=== PATIENT | female | born 1965 | race Caucasian/White ===

== ENCOUNTER 2017-01-02 07:13 | Emergency (ER) | payer BC ==
[2017-01-02 07:25] VITALS: BP 138/81
[2017-01-02] MEDS ORDERED: Ciprofloxacin TAB* 500 MG PO ONE (07:44)
--- NOTE | 2017-01-02 07:48 | UC ---
Complaint Female HPI - HPI Summary HPI Summary: UTI symptoms. Gets a few a year since turning 49. NO fever or vomiting. 3 prior cultures grew E. coli sensitive to Cipro. - History Of Current Complaint Chief Complaint: UCGU Stated Complaint: URINARY COMPLAINT Time Seen by Provider: 01/02/17 07:16 Hx Obtained From: Patient Hx Last Menstrual Period: n/a Onset/Duration: Gradual Onset, Lasting Days - 2 Timing: Constant Severity Initially: Mild Severity Currently: Mild Character: Dull, Cramping Aggravating Factor(s): Urination Associated Signs And Symptoms: Positive: Negative. Negative: Fever, Back Pain, Vaginal Bleeding/Discharge, Vaginal Discharge, Nausea, Vomiting(# Of Episodes =) Related Hx: Similar Episode/Dx as: - UTI - Risk Factors Ectopic Risk Factor: Negative Ovarian Torsion Risk Factor: Negative - Allergies/Home Medications Allergies/Adverse Reactions: Allergies Allergy/AdvReac Type Severity Reaction Status Date / Time Unknown med Allergy Rash Uncoded 01/02/17 07:26 Home Medications: Home Medications Phenazopyridine TAB* [Pyridium TAB*] 95 mg PO ONCE 01/02/17 [History Confirmed 01/02/17] PMH/Surg Hx/FS Hx/Imm Hx Cardiovascular History Of: Reports: Hypertension Denies: Cardiac Disorders - Surgical History Surgical History: Yes Surgery Procedure, Year, and Place: uterine ablation, back surgeries, bunions removed bilateral feet - Family History Known Family History: Positive: Hypertension - Social History Occupation: Employed Full-time Lives: With Family Alcohol Use: Occasionally Alcohol Amount: weekends Substance Use Type: None Smoking Status (MU): Never Smoked Tobacco Review of Systems Constitutional: Negative Skin: Negative Eyes: Negative ENT: Negative Respiratory: Negative Cardiovascular: Negative Gastrointestinal: Negative Genitourinary: Dysuria, Frequency, Urgency Motor: Negative Neurovascular: Negative Musculoskeletal: Negative Neurological: Negative Psychological: Negative All Other Systems Reviewed And Are Negative: Yes Physical Exam Triage Information Reviewed: Yes Appearance: Well-Appearing, No Pain Distress, Well-Nourished Vital Signs: Initial Vital Signs Temp 97.5 F 01/02/17 07:19 Pulse 70 01/02/17 07:19 Resp 20 01/02/17 07:19 BP 138/81 01/02/17 07:19 Pulse Ox 100 01/02/17 07:19 Vital Signs Reviewed: Yes Eye Exam: Normal Respiratory Exam: Normal Cardiovascular Exam: Normal Abdomen Description: Positive: Other: - suprapubic tenderness Musculoskeletal Exam: Normal Neurological Exam: Normal Psychological Exam: Normal Skin Exam: Normal Diagnostics - Laboratory Diagnostic Studies Completed/Ordered: U/A dip pos leuks, blood, nitrite Complaint Female Dx - Differential Dx/Diagnosis Differential Diagnosis/HQI/PQRI: Renal Colic, Urinary Tract Infection Provider Diagnoses: UTI Discharge - Discharge Plan Condition: Stable Disposition: HOME Prescriptions: Ciprofloxacin HCl [Cipro] 500 mg PO BID #20 tab Patient Education Materials: Urinary Tract Infection in Women (ED) Referrals: Casimiro Stahl DO [Primary Care Provider] -
== END 2017-01-02 07:55 | disposition home or self-care (01) ==
LOC: UCCORT 07:13
DX: N39.0 Urinary tract infection, site not specified (principal); Z87.440 Personal history of urinary (tract) infections
CPT/HCPCS: 87086; 99212; A9270-GY; G0463

== ENCOUNTER 2019-08-29 08:03 | Emergency (ER) | payer BC ==
[2019-08-29 08:31] VITALS: BP 115/81
--- NOTE | 2019-08-29 09:03 | UC ---
Complaint Female HPI - HPI Summary HPI Summary: 53-year-old woman comes in with a chief complaint of increased urinary frequency and foul-smelling urine which reminds her of UTI symptoms. Started several days ago. It's been continuing. Patient has chronic low back pain so she cannot tell if she has any flank pain. No fevers or chills feels well otherwise. Denies any abdominal pain. - History Of Current Complaint Chief Complaint: UCGU Stated Complaint: URINARY COMPLAINT Time Seen by Provider: 08/29/19 08:54 Hx Last Menstrual Period: UTERINE ABLATION 10 YEARS AGO. HAS NOT HAD A PERIOD SINCE Pain Intensity: 0 - Allergies/Home Medications Allergies/Adverse Reactions: Allergies Allergy/AdvReac Type Severity Reaction Status Date / Time Sulfa (Sulfonamide Allergy Unknown Rash Verified 08/29/19 08:21 Antibiotics) Unknown med Allergy Rash Uncoded 01/02/17 07:26 Home Medications: Home Medications Gabapentin CAP(*) [Neurontin 100 mg CAP(*)] 100 mg PO TID 08/29/19 [History Confirmed 08/29/19] Pumpkin Seed Extract/Soy Germ [Azo Bladder Control/Go-Le] 1 cap PO PRN 08/29/19 [History] PMH/Surg Hx/FS Hx/Imm Hx Previously Healthy: Yes - CHRONIC LOW BACK PAIN - Surgical History Surgical History: Yes Surgery Procedure, Year, and Place: uterine ablation, back surgeries, bunions removed bilateral feet. TUMMY TUCK - Family History Known Family History: Positive: Hypertension - Social History Alcohol Use: Occasionally Alcohol Amount: weekends Substance Use Type: None Smoking Status (MU): Never Smoked Tobacco Review of Systems All Other Systems Reviewed And Are Negative: Yes Constitutional: Positive: Negative Skin: Positive: Negative Eyes: Positive: Negative ENT: Positive: Negative Respiratory: Positive: Negative Cardiovascular: Positive: Negative Gastrointestinal: Positive: Negative Genitourinary: Positive: Frequency, Urgency Motor: Positive: Negative Neurovascular: Positive: Negative Musculoskeletal: Positive: Other: - SEE HPI Neurological: Positive: Negative Psychological: Positive: Negative Is Patient Immunocompromised?: No Physical Exam Triage Information Reviewed: Yes Appearance: Well-Appearing, No Pain Distress, Well-Nourished Vital Signs: Initial Vital Signs Temp 98.2 F 08/29/19 08:23 Pulse 53 08/29/19 08:23 Resp 16 08/29/19 08:23 BP 115/81 08/29/19 08:23 Pulse Ox 98 08/29/19 08:23 Vital Signs Reviewed: Yes Eye Exam: Normal Eyes: Positive: Conjunctiva Clear Neck: Positive: Supple Respiratory: Positive: Lungs clear, Normal breath sounds, No respiratory distress Abdomen Description: Positive: Nontender, Soft. Negative: CVA Tenderness (R), CVA Tenderness (L) Musculoskeletal: Positive: Strength Intact, Other: - Tender to palpation mid lower lumbar spine and then over the bilateral SI joints. Neurological: Positive: Alert Psychological: Positive: Age Appropriate Behavior Skin Exam: Normal Complaint Female Dx - Differential Dx/Diagnosis Provider Diagnosis: UTI (urinary tract infection) Discharge ED - Sign-Out/Discharge Documenting (check all that apply): Patient Departure All imaging exams completed and their final reports reviewed: No Studies - Discharge Plan Condition: Stable Disposition: HOME Prescriptions: Nitrofurantoin Monohyd/M-Cryst [Macrobid 100 mg Capsule] 100 mg PO BID #14 cap Patient Education Materials: Urinary Tract Infection in Women (ED) Referrals: Donnie Knutson DO [Primary Care Provider] - Additional Instructions: FOLLOW UP WITH YOUR DOCTOR IF NOT COMPLETELY IMPROVED. GO TO THE EMERGENCY DEPARTMENT IF NOT IMPROVING OR YOUR CONDITION WORSENS; FEVER , YOU FEEL ILL OR ANY QUESTIONS OR CONCERNS. - Billing Disposition and Condition Condition: STABLE Disposition: Home
== END 2019-08-29 09:07 | disposition home or self-care (01) ==
LOC: UCCORT 08:03
DX: N39.0 Urinary tract infection, site not specified (principal); M54.5 Low back pain; G89.29 Other chronic pain; Z88.2 Allergy status to sulfonamides
CPT/HCPCS: 81003; 87077; 87086; 87186; 99212; G0463